=== PATIENT | female | born 1940 | race Caucasian/White ===

== ENCOUNTER → 2017-06-19 | Outpatient (CLI) | payer MEDICARE, BC ==
--- NOTE | 2017-06-20 14:19 | MM ---
Reason for exam: screening (asymptomatic). Last mammogram was performed 1 year ago. History: Patient is postmenopausal. Family history of breast cancer in mother. Benign excisional biopsy of the left breast. Took estrogen for 10 years. Took progesterone for 10 years. Physical Findings: A clinical breast exam by your physician is recommended on an annual basis and results should be correlated with mammographic findings. MG 3D Screening Mammo W/Cad Bilateral CC and MLO view(s) were taken. Prior study comparison: June 14, 2016, bilateral MG 3d screening mammo w/cad. June 09, 2015, bilateral MG screening mammo w CAD. There are scattered fibroglandular densities. Benign calcifications. There is chronic nodularity bilaterally. No significant changes when compared with prior studies. ASSESSMENT: Benign, BI-RAD 2 RECOMMENDATION: Routine screening mammogram of both breasts in 1 year.
== END | disposition home or self-care (01) ==
LOC: RADMAMWWP 06:48
PROVIDERS: ATTEND Internal Medicine Geriatric Medicine
DX: Z12.31 Encounter for screening mammogram for malignant neoplasm of breast (principal)
CPT/HCPCS: 77063; G0202

== ENCOUNTER → 2018-06-20 | Outpatient (CLI) | payer MEDICARE, BC ==
--- NOTE | 2018-06-20 15:12 | BD ---
EXAMINATION TYPE: Axial Bone Density DATE OF EXAM: 06/20/2018 COMPARISON: NONE CLINICAL HISTORY: 77-year-old female with known osteoporosis, postmenopausal screening Height: 5 FT 4 IN Weight: 180 FRAX RISK QUESTIONS: RISK FACTORS HISTORY OF: Surgery to Spine/Hip(right/left)/Wrist (right/left): LT HIP,GINA WRISTS When: RT WRIST FUSED 2004, LT WRIST 2008,LT HIP REPLACED 2012 Family History of Osteoporosis: YES Active: MODERATE Postmenopausal woman: AGE 44 Take estrogen and/or progesterone medications: How long: TOOK FOR 10 YEARS NO LONGER TAKES Lost more than 2 inches in height since high school: YES MEDICATIONS: Additional Medications: ATIVAN, GABAPENTIN, HYDRALAZINE, NORVASC, SENNA, LOVASTATIN, ZYRTEC, ALLOPURI NOL, CARVEDILOL, ZANTAC, RES STASIS, Additional History: EXAM MEASUREMENTS: Bone mineral densitometry was performed using the [employer] System. Bone mineral density as measured about the Lumbar spine is: ----- L1-L4(G/cm2): 1.072 T Score Values are as follows: ----- L2: 0.0 ----- L3: 0.0 ----- L4: -1.0 ----- L1-L4: -0.9 These measurements are felt to be artifactually elevated due to degenerative sclerosis. Bone mineral density has: INCREASED 3.1 % since study of: 2016 Bone mineral density about the R hip (g/cm2): 0.755 T Score values are as follows: -----R Neck: -2.0 -----R Total: -1.7 Bone mineral density has: DECREASED -10.8 % since study of: 2016 IMPRESSION: Osteopenia (T Score between -2.5 and -1). Note that measurements in the lumbar spine are felt to be i ncorrectly elevated due to the effect of degenerative sclerosis in calculating the T score values. There is slightly increased risk of fracture and the patient may be considered for treatment. Re-Screen 2-5 years. NOTE: T-SCORE=SD OF THE YOUNG ADULT MEAN.
--- NOTE | 2018-06-21 14:09 | MM ---
Reason for exam: screening (asymptomatic). Last mammogram was performed 1 year ago. History: Patient is postmenopausal. Family history of breast cancer in mother. Benign excisional biopsy of the left breast. Took estrogen for 10 years. Took progesterone for 10 years. Physical Findings: A clinical breast exam by your physician is recommended on an annual basis and results should be correlated with mammographic findings. MG 3D Screening Mammo W/Cad Bilateral CC and MLO view(s) were taken. Prior study comparison: June 19, 2017, bilateral MG 3d screening mammo w/cad. June 14, 2016, bilateral MG 3d screening mammo w/cad. The breast tissue is heterogeneously dense. This may lower the sensitivity of mammography. There are benign appearing round vascular calcifications bilaterally. There is no discrete abnormality. ASSESSMENT: Benign, BI-RAD 2 RECOMMENDATION: Routine screening mammogram of both breasts in 1 year.
== END | disposition home or self-care (01) ==
LOC: RADMAMWWP 06:54
PROVIDERS: ATTEND Internal Medicine Geriatric Medicine
DX: Z12.31 Encounter for screening mammogram for malignant neoplasm of breast (principal); M81.0 Age-related osteoporosis without current pathological fracture; M85.80 Other specified disorders of bone density and structure, unspecified site
CPT/HCPCS: 77063; 77067; 77080

== ENCOUNTER → 2019-06-21 | Outpatient (CLI) | payer MEDICARE, BC ==
--- NOTE | 2019-06-24 10:54 | MM ---
Reason for exam: screening (asymptomatic). Last mammogram was performed 1 year ago. History: Patient is postmenopausal. Family history of breast cancer in mother. Benign excisional biopsy of the left breast. Took estrogen for 10 years. Took progesterone for 10 years. Physical Findings: A clinical breast exam by your physician is recommended on an annual basis and results should be correlated with mammographic findings. MG 3D Screening Mammo W/Cad Bilateral CC and MLO view(s) were taken. Prior study comparison: June 20, 2018, bilateral MG 3d screening mammo w/cad. June 19, 2017, bilateral MG 3d screening mammo w/cad. The breast tissue is heterogeneously dense. This may lower the sensitivity of mammography. There are benign appearing round vascular calcifications bilaterally. There is no discrete abnormality. ASSESSMENT: Benign, BI-RAD 2 RECOMMENDATION: Routine screening mammogram of both breasts in 1 year.
== END | disposition home or self-care (01) ==
LOC: RADMAMWWP 06:49
PROVIDERS: ATTEND Internal Medicine Geriatric Medicine
DX: Z12.31 Encounter for screening mammogram for malignant neoplasm of breast (principal)
CPT/HCPCS: 77063; 77067

== ENCOUNTER → 2020-06-22 | Outpatient (CLI) | payer MEDICARE, BC ==
--- NOTE | 2020-06-22 11:34 | BD ---
EXAMINATION TYPE: Axial Bone Density DATE OF EXAM: 06/22/2020 COMPARISON: DEXA bone scan 2017 CLINICAL HISTORY: Postmenopausal female. Height: 5 FT 4 IN Weight: 173 FRAX RISK QUESTIONS: Alcohol (3 or more units per day): NO Family History (Parent hip fracture): NO Glucocorticoids (More than 3mos): NO (Ex: prednisone, prednisolone, methylprednisolone, dexamethasone, and hydrocortisone). History of Fracture in Adulthood: NO Secondary Osteoporosis: 1. Type 1 Diabetes: NO 2. Hyperthyroidism: NO 3. Menopause before 45: NO 4. Malnutrition: NO 5. Chronic liver disease: NO Rheumatoid Arthritis: NO Current Tobacco Use: NO RISK FACTORS HISTORY OF: Surgery to Spine/Hip(right/left)/Wrist (right/left): LEFT HIP REPLACED GINA WRISTS When: RT WRIST 2004 LT WRIST 2008 LEFT HIP REPLACED 2012 Family History of Osteoporosis: YES Active: YES Postmenopausal woman: AGE 44 Take estrogen and/or progesterone medications: TOOK HRT FOR 10 YEARS NO LONGER Lost more than 2 inches in height since high school: YES Frequent falls: WALKS WITH A CANE MOST OF TIME MEDICATIONS: Additional Medications: GABAPENTIN, HYDRALAZINE, SENNA, LOVASTATIN, ZYRTEC, ALLOPURINOL,CARVEDILOL,RE STASIS , PANTOPRAZOLE, TRAZODONE, CALCITRIOL Additional History: EXAM MEASUREMENTS: Bone mineral densitometry was performed using the [employer] System. Bone mineral density as measured about the Lumbar spine is: ----- L1-L4(G/cm2): 1.096 T Score Values are as follows: ----- L2: 0.4 ----- L3: 0.4 ----- L4: -1.7 ----- L1-L4: -0.7 Bone mineral density has: INCREASED 0.1 % since study of: 2017 Bone mineral density about the R hip (g/cm2): 0.865 T Score values are as follows: -----R Neck: -1.2 -----R Total: -1.4 Bone mineral density has: INCREASED 5.2 % since study of: 2018 IMPRESSION: Osteopenia (T Score between -2.5 and -1) remains present. There remains slightly increased risk of fracture and the patient may be considered for treatment. Re-Screen 2-5 years. NOTE: T-SCORE=SD OF THE YOUNG ADULT MEAN.
--- NOTE | 2020-06-23 14:11 | MM ---
Reason for exam: screening (asymptomatic). Last mammogram was performed 1 year ago. History: Patient is postmenopausal. Family history of breast cancer in mother. Benign excisional biopsy of the left breast. Took estrogen for 10 years. Took progesterone for 10 years. Physical Findings: A clinical breast exam by your physician is recommended on an annual basis and results should be correlated with mammographic findings. MG 3D Screening Mammo W/Cad Bilateral CC and MLO view(s) were taken. Prior study comparison: June 21, 2019, bilateral MG 3d screening mammo w/cad. June 20, 2018, bilateral MG 3d screening mammo w/cad. The breast tissue is heterogeneously dense. This may lower the sensitivity of mammography. Benign appearing bilateral calcifications. No significant changes when compared with prior studies. ASSESSMENT: Benign, BI-RAD 2 RECOMMENDATION: Routine screening mammogram of both breasts in 1 year.
== END | disposition home or self-care (01) ==
LOC: RADMAMWWP 07:12
PROVIDERS: ATTEND Internal Medicine Geriatric Medicine
DX: Z12.31 Encounter for screening mammogram for malignant neoplasm of breast (principal); M85.80 Other specified disorders of bone density and structure, unspecified site; M81.0 Age-related osteoporosis without current pathological fracture
CPT/HCPCS: 77063; 77067; 77080

== ENCOUNTER → 2021-06-23 | Outpatient (CLI) | payer MEDICARE, BC ==
--- NOTE | 2021-06-23 14:10 | MM ---
Reason for exam: screening (asymptomatic). Last mammogram was performed 1 year ago. History: Patient is postmenopausal and has history of other cancer at age 75. Family history of breast cancer in mother. Benign excisional biopsy of the left breast. Took estrogen for 10 years. Took progesterone for 10 years. Physical Findings: A clinical breast exam by your physician is recommended on an annual basis and results should be correlated with mammographic findings. MG 3D Screening Mammo W/Cad Bilateral CC and MLO view(s) were taken. Prior study comparison: June 22, 2020, bilateral MG 3d screening mammo w/cad. June 21, 2019, bilateral MG 3d screening mammo w/cad. June 20, 2018, bilateral MG 3d screening mammo w/cad. The breast tissue is heterogeneously dense. This may lower the sensitivity of mammography. There are benign appearing round, vascular calcifications bilaterally. There is no discrete abnormality. ASSESSMENT: Benign, BI-RAD 2 RECOMMENDATION: Routine screening mammogram of both breasts in 1 year.
== END | disposition home or self-care (01) ==
LOC: RADMAMWWP 06:57
PROVIDERS: ATTEND Internal Medicine Geriatric Medicine
DX: Z12.31 Encounter for screening mammogram for malignant neoplasm of breast (principal)
CPT/HCPCS: 77063; 77067

== ENCOUNTER 2021-08-18 09:52 | Day surgery (SDC) | payer MEDICARE, BC ==
[2021-08-16 15:31] VITALS: BMI 29.8
[~2021-08-18 09:52] MED LIST: LACTATED RINGERS 1,000 ML IV SCH; LIDOCAINE 1% (10MG/ML) FOR IV START INTRADERMA PRN; MOXIFLOXACIN HCL 0.5% DROPS 3 ML BTL OP PRN; TETRACAINE 0.5% OPHTH (PF) DROPS 4 ML BTL OP PRN; TIMOLOL 0.5% OPHTH DROPS 5 ML BTL OP PRN
[2021-08-18 10:35] VITALS: TEMP 98.5
[2021-08-18] MEDS: CYCLOPENTOLATE 1% OPHTH SOLN 2 ML BTL OP PRN ×3 (10:35→10:49)
[2021-08-18] MEDS: PHENYLEPHRINE 2.5% OPHTH DRP 2ML OP PRN ×3 (10:38→10:52)
[2021-08-18] MEDS ORDERED: MIDAZOLAM 2 MG/2 ML VIAL ONE (12:21)
[2021-08-18] MEDS ORDERED: EPINEPHrine (PF) 0.3 ML in BALANCED SALT IRRIG SOLN COMB2 500 ML IRRIGATION ONE (12:45)
[2021-08-18] MEDS ORDERED: HYALURONATE SODIUM INTRAOCULAR 1 EACH SYRINGE (12MG/ML) INTRAOCULA ONE (12:46)
[2021-08-18] MEDS ORDERED: LIDOCAINE 1% (PF) 10MG/ML VIAL MISCELLANE ONE (12:47)
[2021-08-18] MEDS ORDERED: BALANCED SALT IRRIG SOLN COMB2 15 ML IRRIG.SOLN INTRAOCULA ONE (12:47)
--- NOTE | 2021-08-18 12:57 | P.OP ---
Date of Procedure: 08/18/21 Preoperative Diagnosis: NS & CS Postoperative Diagnosis: same Procedure(s) Performed: same Implants: MX60E 20.00 Anesthesia: MAC Surgeon: Richie Griffiths Pathology: none sent Condition: stable Disposition: same day Indications for Procedure: blurry vision Operative Findings: no complications
[2021-08-18 13:02] VITALS: RESP 16
[2021-08-18 13:16] VITALS: BP 154/59; PULSE 64
--- NOTE | 2021-08-19 10:46 | OP ---
OPERATIVE REPORT DATE OF SURGERY: August 18, 2021 PROCEDURES: Phacoemulsification of cataract and intraocular lens implant of the right eye. PREOPERATIVE DIAGNOSES: Nuclear sclerosis, cortical sclerosis, posterior subcapsular cataract. POSTOPERATIVE DIAGNOSES: Nuclear sclerosis, cortical sclerosis, posterior subcapsular cataract. SURGEON: Dr. Richie Griffiths. OPERATION: Clear cornea phacoemulsification of cataract right/OD eye. ESTIMATED BLOOD LOSS: Zero. SPECIMEN TAKEN: None. NARRATIVE: After obtaining the appropriate consent, the patient was brought to the Operating Room where the patient was placed under cardiac monitoring and prepped and draped in the usual sterile manner. At the 11 o'clock position a 15 degree super sharp blade was used to create a paracentesis followed by instillation of 1% Xylocaine MPF 50:50 mix with BSS into the anterior chamber. This was followed by Amvisc to stabilize the anterior chamber. At the 9 o'clock position a self-sealing corneal flap incision was created using 2.8 mm bobby keratome. A cystotome was used to initiate a continuous tear capsulorrhexis which was completed with the Utrata forceps. A Binkhorst cannula was used to hydrodissect the lens nucleus followed by hydrodelineation. Phacoemulsification of the lens was performed utilizing phacochop in 3.58 seconds at 19% power. The remaining cortical material was removed using the irrigation aspiration mode followed by additional 1% Xylocaine MPF into the anterior chamber followed by viscoelastic to stabilize the capsular bag. A Bausch [employer] Lomb MX 60E 20.0 diopter posterior chamber lens was placed into the capsular bag without difficulty. The remaining viscoelastic material was removed from the anterior chamber with the irrigation/aspiration. Balanced salt solution was used to normalize the intraocular pressure. The incision was checked for watertight integrity. The patient then received two drops of 0.5% timolol followed by two drops Vigamox, was lightly patched and shielded in the usual manner. There were no complications from the procedure. The patient tolerated the procedure well and was returned to recovery in good condition. MMODL / IJN: [id number] /
== END 2021-08-18 13:41 | disposition home or self-care (01) ==
LOC: OR 09:52
PROVIDERS: ATTEND Ophthalmology
DX: H25.13 Age-related nuclear cataract, bilateral (principal); H35.363 Drusen (degenerative) of macula, bilateral; H25.013 Cortical age-related cataract, bilateral; H00.023 Hordeolum internum right eye, unspecified eyelid; H00.026 Hordeolum internum left eye, unspecified eyelid; H18.453 Nodular corneal degeneration, bilateral; H52.4 Presbyopia; H52.11 Myopia, right eye; H52.223 Regular astigmatism, bilateral; Z90.710 Acquired absence of both cervix and uterus; Z96.651 Presence of right artificial knee joint; Z98.890 Other specified postprocedural states; Z79.899 Other long term (current) drug therapy; Z88.1 Allergy status to other antibiotic agents; H35.30 Unspecified macular degeneration; K21.9 Gastro-esophageal reflux disease without esophagitis
CPT/HCPCS: 66984; C1780; J2250; J0171; J2001

== ENCOUNTER 2021-08-25 11:47 | Day surgery (SDC) | payer MEDICARE, BC ==
[2021-08-23 14:45] VITALS: BMI 29.8
[2021-08-25] MEDS: CYCLOPENTOLATE 1% OPHTH SOLN 2 ML BTL OP PRN ×3 (12:20→12:32)
[2021-08-25] MEDS: PHENYLEPHRINE 2.5% OPHTH DRP 2ML OP PRN ×3 (12:23→12:35)
[2021-08-25 12:30] VITALS: TEMP 98
[2021-08-25] MEDS ORDERED: MIDAZOLAM 2 MG/2 ML VIAL ONE (13:55)
[2021-08-25] MEDS ORDERED: fentaNYL (PF) 50 MCG/ML 2 ML AMP ONE (13:55)
[2021-08-25] MEDS ORDERED: HYALURONATE SODIUM INTRAOCULAR 1 EACH SYRINGE (12MG/ML) INTRAOCULA ONE (14:20)
[2021-08-25] MEDS ORDERED: LIDOCAINE 1% (PF) 10MG/ML VIAL MISCELLANE ONE (14:20)
[2021-08-25] MEDS ORDERED: BALANCED SALT IRRIG SOLN COMB2 15 ML IRRIG.SOLN INTRAOCULA ONE (14:20)
[2021-08-25] MEDS ORDERED: EPINEPHrine (PF) 0.3 ML in BALANCED SALT IRRIG SOLN COMB2 500 ML IRRIGATION ONE (14:21)
--- NOTE | 2021-08-25 14:41 | P.OP ---
Date of Procedure: 08/25/21 Preoperative Diagnosis: NS & CS Postoperative Diagnosis: same Procedure(s) Performed: PIOL, OS Implants: MX60E 23.00 & CTR 13 mm Anesthesia: MAC Surgeon: Richie Griffiths Pathology: none sent Condition: stable Disposition: same day Indications for Procedure: blurry vision Operative Findings: no complications
[2021-08-25 14:47] VITALS: RESP 18
[2021-08-25 15:03] VITALS: PULSE 58
[2021-08-25 15:09] VITALS: BP 142/62
--- NOTE | 2021-08-25 20:09 | OP ---
OPERATIVE REPORT DATE OF SURGERY: 08/25/2021. PROCEDURE: Phacoemulsification of cataract and intraocular lens implant, left eye. PREOPERATIVE DIAGNOSIS: Nuclear sclerosis, cortical sclerosis. POSTOPERATIVE DIAGNOSES: Nuclear sclerosis, cortical sclerosis and zonular dehiscence. SURGEON: Dr. Richie Griffiths. ANESTHESIA: Topical. ESTIMATED BLOOD LOSS: None. SPECIMEN TAKEN: None. NARRATIVE: After obtaining the appropriate consent, the patient was brought to the operating room. There she was placed under cardiac monitoring, prepped and draped in the usual sterile manner. She was approached from her left temporal side, and at the 5 o'clock position an MVR blade was used to create a paracentesis port. Through this opening 1% Xylocaine MPF 50:50 mix with balanced salt solution was injected into the anterior chamber. This was followed by stabilization of the anterior chamber with Amvisc. At the 3 o'clock position, a 2.5 mm keratome was used to create a self-sealing corneal flap incision. Through this opening a cystotome was introduced to begin a continuous tear capsulorrhexis, which was completed using the Utrata forceps. Hydrodissection and hydrodelineation of the lens were accomplished with balanced salt solution. Phacoemulsification of the lens utilizing phaco chop was accomplished in 14.03 seconds at 13% power. Additional Xylocaine MPF was instilled into the anterior chamber. This was followed by removal of the remaining cortex from the capsular bag. During the course of cortical removal, it was appreciated that there was significant tenting of the posterior capsule between the clock hours of 11 and 3 o'clock, suggesting zonular dehiscence. At this stage the procedure was halted. Viscoelastic was used to stabilize the capsular bag and a capsular tension ring of 13 mm, model 276 US1G was placed into the equator of the bag without any difficulties. Following placement of the capsular tension ring, additional cortical cleanup was accomplished without any further difficulties. The capsular bag was then once again re-stabilized with additional Amvisc, and a Bausch and Lomb MX60E 23.0 diopter posterior chamber intraocular lens was inserted into the capsular bag. The remaining viscoelastic was then removed from in and around the intraocular lens as well as the anterior chamber. The eye was then brought to normal intraocular pressure through the paracentesis port and the incisions were confirmed watertight. She then received 2 drops of 0.5% timolol followed by 2 drops of 0.5% moxifloxacin. She was then lightly patched and shielded in the usual manner. There were no complications from the procedure. She tolerated the procedure well and was returned to Outpatient Recovery in good condition. RONALD / KIRIT: [id number] /
== END 2021-08-25 15:25 | disposition home or self-care (01) ==
LOC: OR 11:47
PROVIDERS: ATTEND Ophthalmology
DX: H25.12 Age-related nuclear cataract, left eye (principal); K21.9 Gastro-esophageal reflux disease without esophagitis; H25.9 Unspecified age-related cataract; I10 Essential (primary) hypertension; M19.90 Unspecified osteoarthritis, unspecified site; G62.9 Polyneuropathy, unspecified; H04.129 Dry eye syndrome of unspecified lacrimal gland; H52.11 Myopia, right eye; E78.5 Hyperlipidemia, unspecified; H52.203 Unspecified astigmatism, bilateral; H52.4 Presbyopia; Z79.899 Other long term (current) drug therapy; Z79.82 Long term (current) use of aspirin; Z88.1 Allergy status to other antibiotic agents
CPT/HCPCS: 66984; L8610; C1780; J2250; J0171; J3010; J2001

== ENCOUNTER → 2022-06-27 | Outpatient (CLI) | payer MEDICARE, BC ==
--- NOTE | 2022-06-27 19:25 | BD ---
EXAMINATION TYPE: Axial Bone Density DATE OF EXAM: 06/27/2022 CLINICAL HISTORY: 81 years year old Female. ICD-10 CODE: M81.0 AGE-RELATED OSTEOPOROSIS W/O CURRENT Height: 64 Weight: 164 FRAX RISK QUESTIONS: Alcohol (3 or more units per day): NO Family History (Parent hip fracture): NO Glucocorticoids (More than 3mos): NO History of Fracture in Adulthood: NO Secondary Osteoporosis: 1. Type 1 Diabetes: NO 2. Hyperthyroidism: NO 3. Menopause before 45: NO 4. Malnutrition: NO 5. Chronic liver disease: NO Rheumatoid Arthritis: NO Current Tobacco Use: NO RISK FACTORS HISTORY OF: Hip Fracture (Right/Left): NO Spine Fracture: NO History of Wrist Fracture: NO Surgery to Spine/Hip(right/left)/Wrist (right/left): LT HIP REPLACED 2014 Family History of Osteoporosis: SISTER Active: YES Diet low in dairy products/other sources of calcium: YES Postmenopausal woman: YES Take estrogen and/or progesterone medications: NO Lost more than 2 inches in height since high school: NO Frequent falls: NO Poor Health: NO Hyperparathyroidism: NO Adrenal Insufficiency: NO MEDICATIONS: Prednisone or other steroids: NO Thyroid Medications: NO Osteoporosis Medications:NO Additional Medications: PANTOPRAZOLE, TRAZODONE, LOVASTATIN, CALCITRIOL, MULTI VIT., VIT D, CALCIUM, EXAM MEASUREMENTS: Bone mineral densitometry was performed using the [employer] System. Bone mineral density as measured about the Lumbar spine is: ----- L1-L4(G/cm2): 1.032 T Score Values are as follows: ----- L1: -1.8 ----- L2: -1.0 ----- L3: -0.5 ----- L4: -1.2 ----- L1-L4: -1.2 Bone mineral density has: DECREASED 6.1 % since study of: 06/20/2018 Bone mineral density about the R hip (g/cm2): 0.822 T Score values are as follows: -----R Neck: -1.6 -----R Total: -1.5 Bone mineral density has: INCREASED 3.9 % since study of: 06/20/2018 FRAX%s: The graph provided illustrates a 13.7% chance for a major osteoporotic fx and a 3.7% chance f or the hips probability for fx in 10 years time. IMPRESSION: Osteopenia (T Score between -2.5 and -1). There is slightly increased risk of fracture and the patient may be considered for treatment. Re-Screen 2-5 years. NOTE: T-SCORE=SD OF THE YOUNG ADULT MEAN.
--- NOTE | 2022-06-28 08:02 | MM ---
Reason for Exam: Screening (asymptomatic). Last screening mammogram was performed 12 month(s) ago. Patient History: Menarche at age 11. First Full-Term at age 20. Hysterectomy at age 75. Postmenopausal. Other cancer, age 75. Estrogen for 10 years until age 62. Progesterone for 10 years until age 62. Benign Excisional Biopsy on the left side. Mother had breast cancer, age 74. Risk Values: Nazanin 5 year model risk: 3.4%. NCI Lifetime model risk: 4.1%. Prior Study Comparison: 06/21/2019 Bilateral Screening Mammogram, [facility]. 06/22/2020 Bilateral Screening Mammogram, [facility]. 06/23/2021 Bilateral Screening Mammogram, [facility]. Tissue Density: The breast tissue is heterogeneously dense. This may lower the sensitivity of mammography. Analyzed By CAD. Overall Assessment: Benign, BI-RAD 2 Management: Screening Mammogram of both breasts in 1 year. Electronically signed and approved by: Stephane Esquivel D.O.
== END | disposition home or self-care (01) ==
LOC: RADMAMWWP 07:04
PROVIDERS: ATTEND Internal Medicine Geriatric Medicine
DX: Z12.31 Encounter for screening mammogram for malignant neoplasm of breast (principal); M81.0 Age-related osteoporosis without current pathological fracture
CPT/HCPCS: 77063; 77067; 77080

== ENCOUNTER → 2024-06-28 | Outpatient (CLI) | payer MEDICARE, BC ==
--- NOTE | 2024-06-28 21:21 | MM ---
Reason for Exam: Screening (asymptomatic). Last mammogram was performed 2 year(s) and 0 month(s) ago. Patient History: Menarche at age 11. First Full-Term at age 20. Hysterectomy at age 75. Postmenopausal. Other cancer, age 75. Estrogen for 10 years until age 62. Progesterone for 10 years until age 62. Benign Excisional Biopsy on the left side. Mother had breast cancer, age 74. Risk Values: Nazanin 5 year model risk: 2.9%. NCI Lifetime model risk: 2.9%. Prior Study Comparison: 06/22/2020 Bilateral Screening Mammogram, [facility]. 06/23/2021 Bilateral Screening Mammogram, [facility]. 06/27/2022 Bilateral MG 3D screening mammo w/cad, [facility]. Tissue Density: There are scattered areas of fibroglandular density. Findings: Analyzed By CAD. The pattern is symmetrical. Benign vascular calcifications present bilaterally. Benign spherical calcifications are within the right breast. No suspicious groups of microcalcifications, spiculated or lobular masses, architectural distortion or other secondary signs of malignancy are mammographically apparent. Overall Assessment: Benign, BI-RAD 2 Management: Screening Mammogram of both breasts in 1 year. A negative mammogram report should not preclude additional follow up of suspicious palpable abnormalities. Patient should continue monthly self breast exam. A clinical breast exam by your physician is recommended on an annual basis and results should be correlated with mammographic findings. Note on Nazanin scores and lifetime risk: 1. A Nazanin score greater than 3% is considered moderate risk. If this is the case, consider specialist referral to assess eligibility for a risk reducing agent. 2. If overall lifetime risk for the development of breast cancer is 20% or higher, the patient may qualify for future screening with alternating mammogram and breast MRI. [facility], , 06/28/2024 9:18 PM. Electronically signed and approved by: Adam Franz D.O. Radiologis
== END | disposition home or self-care (01) ==
LOC: RADMAMWWP 08:04
PROVIDERS: ATTEND Internal Medicine Geriatric Medicine
DX: Z12.31 Encounter for screening mammogram for malignant neoplasm of breast
CPT/HCPCS: 77063; 77067